=== PATIENT | male | born 1990 | race Caucasian/White ===

== ENCOUNTER 2021-01-19 09:35 | Emergency (ER) | payer BC ==
[~2021-01-19] VITALS: Ht 185.4 cm; Wt 148.4 kg
[2021-01-19] MEDS ORDERED: SODIUM CHLORIDE FLUSH 10ML SYR IVF ONE (11:00)
[2021-01-19] MEDS ORDERED: CEFTRIAXONE PMX 2GM/50ML 50 ML IVPB ONE (11:00)
[2021-01-19] MEDS ORDERED: CEFTRIAXONE PMX 2GM/50ML 50 ML ONE (11:02)
--- NOTE | 2021-01-19 11:03 | NUR ---
MEDS REQUESTED. COLLEGUE AT BEDSIDE FOR PIV
--- NOTE | 2021-01-19 11:11 | NUR ---
NO BLOOD CULTURES TO BE DRAWN PER MD
[2021-01-19 11:22] LABS: BASOPHILS % (AUTO) 0 % (0-1); EOSINOPHILS % (AUTO) 0 % (1-7); LYMPHOCYTES % (AUTO) 10 % (22-44); MEAN CORPUSCULAR HEMOGLOBIN 26.1 pg (27.5-34.5); MEAN PLATELET VOLUME 8.9 fL (7.4-10.4); MONOCYTES % (AUTO) 9 % (2-9); NEUTROPHILS % (AUTO) 80 % (42-75); PLATELET COUNT 226 x10^3/uL (130-400); RED BLOOD COUNT 4.82 x10^6/uL (4.38-5.82); RED CELL DISTRIBUTION WIDTH 14.3 % (9.4-14.8)
[2021-01-19 11:23] LABS: MD NO
[2021-01-19 11:33] LABS: ALBUMIN 3.7 g/dL (3.4-5.0); ANION GAP 5 mmol/L (5-15); CALCIUM 8.8 mg/dL (8.5-10.1); CHLORIDE 104 mmol/L (98-107); CREATININE 1.07 mg/dL (0.7-1.3)
--- NOTE | 2021-01-19 12:04 | NUR ---
Leading edge of erythema encircled and timed with skin marker Patient updated on estmaited poc (awaiting erp decision on admit or home with abx) Report to apoorva ORTEGA
--- NOTE | 2021-01-19 12:07 | NUR ---
pt in bed with no signs or symptoms of acute distress noted respirations even and unlabored
[2021-01-19 12:24] VITALS: BP 113/59
== END 2021-01-19 12:48 | disposition home or self-care (01) ==
LOC: ED 10:56
DX: L03.116 Cellulitis of left lower limb (principal); L03.115 Cellulitis of right lower limb; R50.9 Fever, unspecified
CPT/HCPCS: 36415; 80048; 82040; 83605; 84145; 85025; 96365; 99284; J0696